=== PATIENT | female | born 1990 | race Caucasian/White ===

== ENCOUNTER 2020-09-09 10:45 | Emergency (ER) | payer OTHER ==
[~2020-09-09] VITALS: Ht 170.2 cm; Wt 105.0 kg
[2020-09-09 11:24] VITALS: BP 126/101
== END 2020-09-09 13:07 | disposition home or self-care (01) ==
LOC: ER 10:46
DX: I80.02 Phlebitis and thrombophlebitis of superficial vessels of left lower extremity (principal); M79.89 Other specified soft tissue disorders; Z72.89 Other problems related to lifestyle
CPT/HCPCS: 93971; 99284